=== PATIENT | female | born 2000 | race Asian ===

== ENCOUNTER 2024-07-20 18:14 | Emergency (ER) | payer OTHER ==
[~2024-07-20] VITALS: Ht 180.3 cm; Wt 58.1 kg
[2024-07-20] MEDS ORDERED: ACETAMINOPHEN ES 500 MG TABLET ONE (19:03)
[2024-07-20] MEDS ORDERED: IBUPROFEN 400 MG TABLET ONE (19:03)
[2024-07-20] MEDS: ACETAMINOPHEN ES 500 MG TABLET PO ONE (19:05)
[2024-07-20] MEDS: IBUPROFEN 400 MG TABLET PO ONE (19:05)
[2024-07-20 19:10] LABS: PREGNANCY TEST URINE QUAL NEGATIVE (NEGATIVE)
[2024-07-20 22:00] VITALS: BP 103/78; TEMP 98.3; O2SAT 98
== END 2024-07-20 22:02 | disposition home or self-care (01) ==
LOC: ER 18:21
DX: M25.552 Pain in left hip (principal); M79.652 Pain in left thigh; V29.39XA Other motorcycle (driver) (passenger) injured in unspecified nontraffic accident, initial encounter; Y93.55 Activity, bike riding; Y92.89 Other specified places as the place of occurrence of the external cause; Y99.8 Other external cause status
CPT/HCPCS: 73502; 73552; 84703-TC